=== PATIENT | male | born 1960 | race Caucasian/White ===

== ENCOUNTER 2022-09-26 23:03 | Inpatient (IN) | payer OTHER ==
[~2022-09-26] VITALS: Ht 180.3 cm; Wt 115.7 kg
[2022-09-26 23:40] LABS: BASOPHILS ABSOLUTE AUTO 0.05 K/mm3 (0.00-0.23); BASOPHILS PERCENT AUTO 1 % (0-2); EOSINOPHILS ABSOLUTE AUTO 0.12 K/mm3 (0.00-0.68); EOSINOPHILS PERCENT AUTO 1 % (0-6); Hematocrit 44.3 % (37.0-53.0); Hemoglobin 15.1 g/dL (13.5-17.5); IMMATURE GRAN ABSOLUTE AUTO 0.04 K/mm3 (0.00-0.10); IMMATURE GRAN PERCENT AUTO 1 % (0-1); LYMPHOCYTES ABSOLUTE AUTO 2.65 K/mm3 (0.84-5.20); LYMPHOCYTES PERCENT AUTO 32 % (21-46); MONOCYTES ABSOLUTE AUTO 1.03 K/mm3 (0.16-1.47); MONOCYTES PERCENT AUTO 12 % (4-13); Mean Corpuscular HGB 30.3 pg (26.0-34.0); Mean Corpuscular HGB Conc 34.1 g/dL (31.5-36.5); Mean Corpuscular Volume 89 fL (80-100); Mean Platelet Volume 9.4 fL (9.1-12.4); NEUTROPHILS ABSOLUTE AUTO 4.51 K/mm3 (1.96-9.15); NEUTROPHILS PERCENT AUTO 54 % (41-73); Platelet Count 175 K/mm3 (150-400); RDW Coefficient Variation 12.7 % (11.7-14.2); RDW Standard Deviation 41.5 fL (35.1-46.3); Red Blood Cell Count 4.98 M/mm3 (4.30-5.90)
[2022-09-27 00:22] LABS: Alanine Aminotransfer (ALT/SGP 34 U/L (12-78); Albumin/Globulin Ratio 1.1 (0.8-1.8); Alk Phos 64 U/L (50-136); Anion Gap 2 mmol/L (6-16); Aspartate Aminotrans (AST/SGOT 30 U/L (12-37); Bilirubin, Total 0.6 mg/dL (0.1-1.0); Blood Urea Nitrogen 28 mg/dL (8-24); Bun/Creatinine Ratio 26.4 (12.0-20.0); CO2, Blood 28 mmol/L (21-32); Calcium, Blood 9.2 mg/dL (8.5-10.1); Chloride, Blood 107 mmol/L (98-108); Creatinine, Blood 1.06 mg/dL (0.60-1.20); Globulin, Blood 3.5 g/dL (2.2-4.0); Glomerular Filtration Rate 80 (60-); Glucose, Blood 106 mg/dL (70-99); Potassium, Blood 4.2 mmol/L (3.5-5.5); Sodium, Blood 137 mmol/L (136-145); Total Protein, Blood 7.5 g/dL (6.4-8.2)
[2022-09-27 00:25] LABS: Ethanol (Alcohol), Blood, Med <3 mg/dL
--- NOTE | 2022-09-27 06:29 | NUR ---
PT ARRIVED FROM ED AT 0420, PT AND ORIENTED TO ROOM. PT AND EAGER TO SPEAK WITH
[2022-09-27 06:36] LABS: Bun/Creatinine Ratio 28.3 (12.0-20.0); Calcium, Blood 8.8 mg/dL (8.5-10.1); Creatinine, Blood 0.85 mg/dL (0.60-1.20); Potassium, Blood 3.7 mmol/L (3.5-5.5)
[2022-09-27 06:40] LABS: CHOL/HDL RATIO 6.2; Cholesterol 211 mg/dL (50-200); HDL Cholesterol 34 mg/dL (>39); LDL/HDL RATIO 4.3; Low Density Lipoprotein Chol 148 mg/dL (0-110); Triglycerides 147 mg/dL (30-160); Very Low Density Lipoprot Chol 29 mg/dL (6-32)
--- NOTE | 2022-09-27 16:48 | NUR ---
PT SBP 184. NOTED INCREASED DEFICIT IN PT RIGHT SIDE. MD NOTIFIED SEE EMAR AND NOTES.
--- NOTE | 2022-09-28 06:09 | NUR ---
PT AND SPOUSE REPORT MILDLY WORSENING PHYSICAL STRENGTH IN R ARM, FINGERS AND SLIGHT INCREASE OF SLUR IN SPEECH. NO CHANGES NOTED DURING SHIFT, CONTINUE TO MONITOR. PT WALKED WITH WALKER AND MIN ASSIST TO TOILET. PT REQUESTED MIRALAX BECAUSE DID NOT HAVE BM TODAY, USUALLY HAS BM DAILY OR MORE BASELINE. AT BEDSIDE. HYPERTENSIVE BUT NO PRN REQUIRED. AO, PLEASANT.
--- NOTE | 2022-09-28 16:36 | NUR ---
SHIFT SUMMARY PT IS ALERT AND ORIENTED X4. R/A, ONE PERSON ASSIST. DEFECIT NOTED ON THE RIGHT SIDE CONTINUES. NO ACUTE CHANGES THIS SHIFT.
--- NOTE | 2022-09-28 17:50 | NUR ---
Supportive visit this afternoon. Pt sitting on edge of bed upon arrival. Pt denies pain, dyspnea, and nausea. He does report mild anxiety due to being couped up in the hospital. Pt's family at bedside. Reviewed plan of care and discussed recommendations. Pt and family agreeable with plan. Pt and family report no concerns at this time. Palliative Care will remain available
--- NOTE | 2022-09-29 05:54 | NUR ---
ABLE TO AMBULATE WITH WALKER TO TOILET, SBA. NO CHANGES NOTED TO PHYSICAL DEFICITS FROM PREVIOUS SHIFT. NO EVENTS OVER NIGHT. NO PRN MEDS REQUESTED.
--- NOTE | 2022-09-29 16:21 | NUR ---
DAYSHIFT SUMMARY Patient AOx4, this morning reported feeling discouraged that his stroke symptoms are worsening. Pupils equal & reactive. Patient presenting with righted sided deficits, right sided facial droop. RUE flaccid, RLE limited ROM, drags when walking. Pt worked with PT & TELLERS SUPERVISOR today, PT & TELLERS SUPERVISOR provided education to patient & family members. MD at bedside, reviewed plan of care, and discussed ECHO results. Plan is to continue working with therapy, plan to discharge to IRU.
--- NOTE | 2022-09-30 15:05 | NUR ---
SHIFT SUMMARY PT AWAKE DURING SHIFT REPORT. PT ADMITTED FOR CVA WITH R SIDED DEFICITS. SLURRED SPEECH IMPROVING SOME SINCE YESTERDAY. PT ABLE TO AMBULATE TO [facility] USING FWW/GB AND 1P ASSIST. PT HAS GOOD DETERMINATION AND WANTS TO TRY AND DO MUCH POSSIBLE FOR HIMSELF. DR TAYLOR IN TO SEE PT THIS AM; NEW ORDERS PLACED; TELE D/C'D AND NO IV ACCESS NEEDED. PT UP TO SHOWER THIS AFTERNOON; ASSISTED TO SHOWER CHAIR BY THIS RN. PT'S THEN ASSISTED PT WHILE IN SHOWER NEEDED. MULTIPLE VISISTORS TO RM THRU OUT THE DAY. PLEASANT AND CO-OP WITH CARE. ABLE TO MAKE NEEDS KNOWN.
--- NOTE | 2022-10-01 05:41 | NUR ---
A/OX3-4; FORGETFUL AT TIMES. PLEASANT /COOPERATIVE /CALM. WEAK STERILE PREPARATION TECHNICIAN ON RUE, FOOT DROP ON RLE, SLURRED SPEECH AND R FACIAL DROOP; NO WORSENING OF S/S TODAY PER PATIENT. DENIES PAIN AND DENIES FEELING NAUSEATED. LUNGS CTA; CPAP IN PLACE OVERNIGHT. 1X ASSIST WITH WALKER TO BATHROOM. INC AT TIMES. TAKES PILLS WHOLE WITH APPLESAUCE. SLEEP PROMOTED. BED ALARM SET. CALL LIGHT IN REACH; ENCOURAGED TO MAKE NEEDS KNOWN.
--- NOTE | 2022-10-01 17:50 | NUR ---
SHIFT SUMMARY PATIENT AOX4, NO COMPLAINTS TODAY. FAMILY PRESENT INTERMITTENTLY. BED IN LOW POSITION. CALL LIGHT IN REACH. PATIENT CALLS APPROPRIATELY. WILL CONTINUE TO MONITOR.
--- NOTE | 2022-10-01 18:12 | NUR ---
THIS DEPARTMENT COORDINATOR HAS REVIEWED AND AGREES WITH ALL NOTES AND ASSESSMENTS BY JOSUE AVA.
[2022-10-02] MEDS ORDERED: AMLO5 PO (11:31)
[2022-10-02] MEDS ORDERED: ASPI81CH PO (11:31)
[2022-10-02] MEDS ORDERED: ATOR80 PO (11:31)
[2022-10-02] MEDS ORDERED: CLOP75 PO (11:32)
[2022-10-02] MEDS ORDERED: LISI20 PO (11:32)
--- NOTE | 2022-10-02 13:28 | NUR ---
DISCHARGE HOME PT TRANSFERED TO W/C WITH 2 ASSIST AND [place]T. DISCHARGE EDUCATION DONE WITH PT/FAMILY. CONTINUE POC.
== END 2022-10-02 13:30 | disposition home or self-care (01) | DRG 65 ==
LOC: ER 23:03 → ERHOLD 23:04 → MEDS 23:04 → ERHOLD 23:04 → MEDS 09-27 04:22
PROVIDERS: Family Medicine; Student in an Organized Health Care Education/Training Program; ADMIT Internal Medicine
DX: I63.9 Cerebral infarction, unspecified (principal); G81.91 Hemiplegia, unspecified affecting right dominant side; R29.703 NIHSS score 3; R47.81 Slurred speech; I10 Essential (primary) hypertension; R47.1 Dysarthria and anarthria; R47.01 Aphasia; R27.8 Other lack of coordination; G47.33 Obstructive sleep apnea (adult) (pediatric); Z99.89 Dependence on other enabling machines and devices; Z98.890 Other specified postprocedural states
CPT/HCPCS: 36415; 70450; 70496; 70498; 70551; 80048; 80053; 80061; 84484; 85025; 92523; 92526; 92610; 93005; 93010; 93306; 97110; 97112; 97116; 97161; 97166; 97530; 97535; 99285-25; A9270; C8929; G0480; J0360; J1650; J7030; Q9957; Q9967